=== PATIENT | female | born 1955 | race Caucasian/White ===

== ENCOUNTER 2016-08-16 09:21 | Emergency (ER) | payer BC ==
[~2016-08-16 09:21] MED LIST: AMARYL2 PO; AMIT10 PO; ASA5GR PO; COREG6 PO; FISH OIL1200 MG PO; GLUCOPHAGE1000 MG PO; GLUCPH PO; JANUVIA100 MG PO; LIVALO PO; LOZOLTAB PO; NASONEX NAS; PRILO PO; SINGULAIR1 PO; ZESTRIL20 MG PO; ZYRTEC ALLGY10 MG PO
[2016-08-16 10:18] LABS: BASOPHILS 0.5 %; BASOPHILS ABSOLUTE 0.03 10/3/uL (0.0-0.16); EOSINOPHILS 4.1 %; EOSINOPHILS ABSOLUTE 0.24 10/3/uL (0.0-0.53); ER CBC TAT 0 Hrs 03 Mins; HEMATOCRIT 36.3 % (36.0-48.0); HEMOGLOBIN 12.2 g/dL (12.0-16.0); IMMATURE GRANULOCYTES 0.3 %; IMMATURE GRANULOCYTES ABSOLUTE 0.02 10/3/uL (0.0-0.11); LYMPHOCYTES 25.7 %; LYMPHOCYTES ABSOLUTE 1.49 10/3/uL (0.67-4.30); MEAN CORPUS HGB CONC 33.6 g/dL (32.0-36.0); MEAN CORPUSCULAR VOLUME 89.2 fL (80-100); MEAN PLATELET VOLUME 9.7 fL (9.2-13.0); MONOCYTES 6.2 %; MONOCYTES ABSOLUTE 0.36 10/3/uL (0.21-1.20); NEUTROPHILS 63.2 %; NEUTROPHILS ABSOLUTE 3.65 10/3/uL (2.02-8.40); PLATELET COUNT 247 10/3/uL (150-400); RED CELL COUNT 4.07 10/6/uL (4.0-5.6); WHITE BLOOD CELLS 5.8 10/3/uL (4.5-10.5)
[2016-08-16 10:20] LABS: MANUAL DIFF NO %
[2016-08-16 10:27] LABS: INTERNATIONAL NORMAL RATI 1.1 UNITS (-)
[2016-08-16 10:28] LABS: PARTIAL THROMBO TIME 27.9 SEC (22.5-37.2)
[2016-08-16 10:29] LABS: D-DIMER QUANTITATIVE 0.62 ug/mLFEU (< 0.50)
[2016-08-16 10:37] LABS: BUN (BLOOD UREA NITROGEN) 17 MG/DL (6-23); CALCIUM, SERUM 10.4 MG/DL (8.5-10.4); CHEST PAIN PROFILE TAT 0 Hrs 22 Mins; CHLORIDE, SERUM 107 MMOL/L (96-112); CO2 (CARBON DIOXIDE) 27 MMOL/L (24-34); CREATININE 0.98 MG/DL (0.55-1.02); GFR AFRICAN AMERICAN 73 ML/MIN (>=60); GFR NON AFRICAN AMERICAN 63 ML/MIN (>=60); GLUCOSE, SERUM 256 MG/DL (60-99); POTASSIUM, SERUM 4.1 MMOL/L (3.5-5.3); SODIUM, SERUM 141 MMOL/L (135-148); TROPONIN I <0.02 NG/ML (<0.05)
== END 2016-08-16 15:03 | disposition home or self-care (01) ==
LOC: ER 09:21
PROVIDERS: Emergency Medicine
DX: R07.89 Other chest pain (principal); R51 Headache; I10 Essential (primary) hypertension; E11.9 Type 2 diabetes mellitus without complications; Z87.891 Personal history of nicotine dependence; Z95.1 Presence of aortocoronary bypass graft; Z79.84 Long term (current) use of oral hypoglycemic drugs; Z79.82 Long term (current) use of aspirin
CPT/HCPCS: 70450; 71010; 71275; 80048; 83735; 83880; 84484; 85025; 85379; 85610; 85730; 93005; 99285; A9270-GY